=== PATIENT | female | born 1975 | race African-American/Black ===

== ENCOUNTER 2020-01-11 07:46 | Emergency (ER) | payer MEDICAID, OTHER ==
[2020-01-11 17:21] LABS: SARS-CoV-2 MS2 Positive; SARS-CoV-2 N Gene Negative; SARS-CoV-2 S Gene Negative; SARS-CoV-2 by NAA Not Detected (NotDetected); SARS-CoV-2 orf1ab Negative
== END 2020-01-11 08:31 | disposition home or self-care (01) ==
LOC: ERS 07:46
DX: J02.9 Acute pharyngitis, unspecified (principal); M79.10 Myalgia, unspecified site; Z20.828 Contact with and (suspected) exposure to other viral communicable diseases
CPT/HCPCS: 87635; 99283; U0003

== ENCOUNTER 2020-04-16 13:32 | Emergency (ER) | payer OTHER ==
[2020-04-17 00:41] LABS: SARS-CoV-2 MS2 Positive; SARS-CoV-2 N Gene Positive; SARS-CoV-2 S Gene Positive; SARS-CoV-2 by NAA DETECTED (NotDetected); SARS-CoV-2 orf1ab Positive
== END 2020-04-16 17:22 | disposition home or self-care (01) ==
LOC: ERS 13:32
DX: U07.1 COVID-19 (principal)
CPT/HCPCS: 87635; 99283; U0003

== ENCOUNTER 2020-11-08 10:44 | Emergency (ER) | payer OTHER ==
[2020-11-08] MEDS ORDERED: Ketorolac Tromethamine 30 MG/ML VIAL ONE (11:26)
== END 2020-11-08 11:35 | disposition home or self-care (01) ==
LOC: ERS 10:44
DX: J02.9 Acute pharyngitis, unspecified (principal); J30.9 Allergic rhinitis, unspecified
CPT/HCPCS: 96372; 99283; J1885

== ENCOUNTER 2021-02-07 01:15 | Emergency (ER) | payer OTHER | END 2021-02-07 02:09 | disposition home or self-care (01) | LOC: ERS 01:15 | DX: S16.1XXA Strain of muscle, fascia and tendon at neck level, initial encounter (principal); S29.012A Strain of muscle and tendon of back wall of thorax, initial encounter; V89.2XXA Person injured in unspecified motor-vehicle accident, traffic, initial encounter | CPT/HCPCS: 99283 ==

== ENCOUNTER 2021-02-22 17:36 | Emergency (ER) | payer OTHER | END 2021-02-22 22:00 | disposition home or self-care (01) | LOC: ERS 17:36 | DX: J02.9 Acute pharyngitis, unspecified (principal) | CPT/HCPCS: 87081; 87430; 99283 ==